=== PATIENT | male | born 1935 | race Caucasian/White ===

== ENCOUNTER 2021-06-28 14:39 | Outpatient (CLI) | payer OTHER | END 2021-06-28 23:59 | disposition home or self-care (01) | LOC: RAD 14:39 | DX: M47.817 Spondylosis without myelopathy or radiculopathy, lumbosacral region (principal); M25.78 Osteophyte, vertebrae; M13.80 Other specified arthritis, unspecified site | CPT/HCPCS: 72074; 72100 ==